=== PATIENT | male | born 1990 | race Caucasian/White ===

== ENCOUNTER 2019-06-10 22:56 | Emergency (ER) | payer BC ==
[2019-06-10] MEDS ORDERED: LIDOCAINE 1% INJ-PF (10 MG/ML) 30 ML SDV INJ ONE (23:41)
--- NOTE | 2019-06-11 00:22 | ER Document Report ---
HPI - HPI Patient complains to provider of: R finger laceration Time Seen by Provider: 06/10/19 23:11 Pain Level: 1 Context: 28-year-old healthy male who is fully immunized presents emergency department with a right pinky finger laceration sustained just prior to arrival. Patient states he was flipping on his inversion table when he hit a piece of furniture. Patient has a 1 cm linear laceration over the dorsal left fifth PIP that is bleeding with manipulation. Patient has full strength and the flexor and extensor tendons are intact. No other complaints - CONSTITUTIONAL Constitutional: DENIES: Fever, Chills Past Medical History - Social History Smoking Status: Current Every Day Smoker Family History: None Patient has suicidal ideation: No Patient has homicidal ideation: No Psychiatric Medical History: Reports: Hx Attention Deficit Hyperactivity Disorder Vertical Provider Document - CONSTITUTIONAL Notes: PHYSICAL EXAMINATION: Reviewed vital signs and charting by RN GENERAL: Alert, interacts well. No acute distress. HEAD: Normocephalic, atraumatic. EYES: Pupils equal and round. Extraocular movements intact. ENT: Oral mucosa moist, tongue midline. NECK: Full range of motion. Trachea midline. EXTREMITIES: Moves all 4 extremities spontaneously. No edema, No cyanosis. PSYCH: Normal affect, normal mood. SKIN: Warm, dry, normal turgor. 1 cm linear laceration on the dorsal right fifth PIP, both flexor and extensor tendons are intact, sensation intact light touch. Course - Re-evaluation Re-evalutation: 06/11/19 00:24 Patient's tetanus is up-to-date. Primary closure was performed using 5-0 Ethilon after local anesthesia with lidocaine 1% without epinephrine and a finger splint was applied. Patient tolerated the procedure well. - Vital Signs Vital signs: Temp Pulse Resp BP Pulse Ox 98.2 F 98 16 152/86 H 100 06/10/19 23:05 06/10/19 23:05 06/10/19 23:05 06/10/19 23:05 06/10/19 23:05 Procedures - Laceration/Wound Repair Right Hand 5th digit Wound length (cm): 1 Wound's Depth, Shape: Linear Laceration pre-procedure: Sterile PPE donned Anesthetic type: 1% Lidocaine Wound explored: Clean Wound Debrided: Minimal Wound Repaired With: Sutures Suture Size/Type: 5:0, Ethilon Post-procedure wound care: Sterile dressing applied, Splint applied Discharge - Discharge Clinical Impression: Laceration Condition: Good Disposition: HOME, SELF-CARE Additional Instructions: Please return to your primary doctor, the ED, or an urgent care in 7 days for suture removal. Return immediately if you develop spreading redness around the wound, pus from the wound, worsening pain, or a fever of >101. Keep the area clean and dry. Wash gently with soap and water twice daily and cover with antibiotic ointment. Referrals: CONNIE HOGAN MD [Primary Care Provider] - Follow up as needed
[2019-06-11 00:27] VITALS: BP 145/79
== END 2019-06-11 00:19 | disposition home or self-care (01) ==
LOC: ER 22:56
DX: S61.216A Laceration without foreign body of right little finger without damage to nail, initial encounter (principal); W22.03XA Walked into furniture, initial encounter; F17.200 Nicotine dependence, unspecified, uncomplicated
CPT/HCPCS: 99282; 12001; J3490